=== PATIENT | female | born 1940 | race Caucasian/White ===

== ENCOUNTER 2019-10-28 19:35 | Emergency (ER) | payer OTHER ==
--- NOTE | 2019-10-28 20:03 | PDOC ---
Rapid Medical Evaluation Time Seen by Provider: 10/28/19 19:41 Medical Evaluation: Allergies Allergy/AdvReac Type Severity Reaction Status Date / Time No Known Allergies Allergy Verified 08/01/15 17:38 10/28/19 19:59 I performed a brief in-person evaluation of this patient. Healthy 79-year-old female with hot water burn to wrist at 5pm. Pertinent physical exam findings: Superficial thickness burn palmar aspect right wrist, non-circumferential, 1% of BSA BP 172/80 I have ordered the following: Tetanus booster Patient to proceed to [facility] for further evaluation. Discharge Disposition - Diagnosis Burn - Referrals - Patient Instructions - Post Discharge Activity
[2019-10-28 20:04] VITALS: BP 172/80; PULSE 74; TEMP 97.2; BMI 24.9
[2019-10-28] MEDS ORDERED: DIPHTH,PERTUSS(ACELL),TET 0.5 ML DISP.SYRIN IM ONE ×2 (21:59→22:01)
[2019-10-28] MEDS ORDERED: SILVER SULFADIAZINE 1% TOP CREAM 50 GM JAR TP ONE (22:01)
--- NOTE | 2019-10-28 22:05 | PDOC ---
History of Present Illness - General Chief Complaint: Burn Stated Complaint: BURN TO R WRIST Time Seen by Provider: 10/28/19 19:41 History Source: Patient Exam Limitations: Clinical Condition - History of Present Illness Initial Comments: 10/28/19 22:06 Patient with no significant past medical history present with complaint of burn to radial aspect of right wrist status post ordering hot chocolate from a fast food restaurant and accidentally pouring hot water on her right wrist. Patient reported burning sensation to radial aspect of right wrist. Patient does not recall last tetanus vaccine. Denies any other symptoms. Patient did not take anything for pain Timing/Duration: reports: just prior to arrival Past History - Past Medical History Allergies/Adverse Reactions: Allergies Allergy/AdvReac Type Severity Reaction Status Date / Time No Known Allergies Allergy Verified 10/28/19 20:04 Home Medications: Ambulatory Orders NK [No Known Home Medication] 08/01/15 COPD: No CHF: No - Psycho Social/Smoking Cessation Hx Smoking History: Never smoked Have you smoked in the past 12 months: No Information on smoking cessation initiated: No Hx Alcohol Use: No Drug/Substance Use Hx: No Substance Use Type: None Review of Systems - Review of Systems Able to Perform ROS?: Yes Is the patient limited Armenian proficient: No Constitutional: No: Chills, Fever, Malaise HEENTM: No: Symptoms Reported Respiratory: No: Symptoms reported Cardiac (ROS): No: Symptoms Reported Musculoskeletal: Yes: Symptoms Reported, See HPI, Muscle Pain (pain to right wrist over burn area) Integumentary: Yes: Symptoms Reported, See HPI, Erythema (redness to right wrist over burn area) Neurological: No: Symptoms reported, Numbness, Paresthesia, Weakness All Other Systems: Reviewed and Negative *Physical Exam - Vital Signs Last Vital Signs Temp Pulse Resp BP Pulse Ox 97.2 F L 74 18 172/80 H 100 10/28/19 20:01 10/28/19 20:01 10/28/19 20:01 10/28/19 20:01 10/28/19 20:01 - Physical Exam General Appearance: Yes: Nourished, Appropriately Dressed. No: Apparent Distress HEENT: positive: Normal ENT Inspection Neck: positive: Supple Respiratory/Chest: negative: Respiratory Distress, Accessory Muscle Use Musculoskeletal: positive: Normal Inspection Extremity: positive: Erythema (mild localized erythema to radial dorsal aspect of right wrist. superficial first degree burn to radial dorsal aspect of right wrist) Integumentary: positive: Other (mild localized erythema to radial dorsal aspect of right wrist. superficial first degree burn to radial dorsal aspect of right wrist) Neurologic: positive: Fully Oriented, Alert, Normal Mood/Affect, Normal Response , Motor Strength 5/5 Medical Decision Making - Medical Decision Making 10/28/19 22:08 Patient with no significant past medical history present with complaint of burn to radial aspect of right wrist status post ordering hot chocolate from a fast food restaurant and accidentally pouring hot water on her right wrist. Patient reported burning sensation to radial aspect of right wrist. Patient does not recall last tetanus vaccine. Denies any other symptoms. Patient did not take anything for pain Exam was significant for localized superficial first-degree burn to on the dorsal aspect of right wrist. No blisters or open wound to burn area. Mild erythema to area of burn to right wrist. Area cleaned with Betadine and Silvadene cream applied to burn area. Right wrist wrapped with 4 x 4 and 2 inches Gordon bandage. Rest of Silvadene cream given to patient to use at home for a week to prevent infection and to aid with healing. Patient advised to follow-up with PCP in 3 to 5 days for reassessment. Patient voiced understanding and stable for discharge Discharge - Discharge Information Problems reviewed: Yes Clinical Impression/Diagnosis: Burn First degree burn of right wrist Qualifiers: Encounter type: initial encounter Qualified Code(s): T23.171A - Burn of first degree of right wrist, initial encounter Condition: Stable Disposition: HOME - Admission No - Follow up/Referral Referrals: Joe Best [Primary Care Provider] - - Patient Discharge Instructions Patient Printed Discharge Instructions: How to Take Care of a Burn Additional Instructions: Use given antibiotics ointment to burn area twice a day for a week or until healed. Follow-up with primary care in 3 to 5 days for checkup of burn area - Post Discharge Activity
== END 2019-10-28 22:14 | disposition home or self-care (01) ==
LOC: JERFT 19:35
PROC: 2W2CX4Z Dressing of Right Lower Arm using Bandage (ICD-10-PCS; principal; 2019-10-28)
PROC: 3E0234Z Introduction of Serum, Toxoid and Vaccine into Muscle, Percutaneous Approach (ICD-10-PCS; 2019-10-28)
DX: T23.171A Burn of first degree of right wrist, initial encounter (principal); T31.0 Burns involving less than 10% of body surface; X11.8XXA Contact with other hot tap-water, initial encounter; Y93.89 Activity, other specified; Y92.511 Restaurant or cafe as the place of occurrence of the external cause; Y99.8 Other external cause status
CPT/HCPCS: 90715; 99281-25